=== PATIENT | female | born 1950 | race Two or more races ===

== ENCOUNTER 2018-06-23 13:41 | Outpatient (CLI) | payer OTHER | END 2018-06-23 13:56 | disposition home or self-care (01) | LOC: LAB 13:41 | DX: D72.820 Lymphocytosis (symptomatic) (principal); I48.2 Chronic atrial fibrillation; M81.0 Age-related osteoporosis without current pathological fracture; D50.8 Other iron deficiency anemias; D51.8 Other vitamin B12 deficiency anemias; I10 Essential (primary) hypertension; K90.89 Other intestinal malabsorption ==

== ENCOUNTER 2020-06-07 14:34 | Outpatient (CLI) | payer OTHER | END 2020-06-07 15:17 | disposition home or self-care (01) | LOC: OFIC 805 14:34 | PROVIDERS: ATTEND Otolaryngology Otology & Neurotology | DX: H92.02 Otalgia, left ear (principal); M54.2 Cervicalgia ==

== ENCOUNTER 2021-05-01 12:57 | Outpatient (CLI) | payer OTHER | END 2021-05-01 13:01 | disposition home or self-care (01) | LOC: RAD 12:57 | PROVIDERS: ATTEND Physical Medicine & Rehabilitation | DX: M54.50 Low back pain, unspecified (principal) ==